=== PATIENT | female | born 1970 | race Hispanic/Latino ===

== ENCOUNTER 2022-10-01 12:46 | Inpatient (IN) | payer SELFPAY ==
[~2022-10-01 12:46] MED LIST: Iopamidol 300 61% 100 ML VIAL FS ONE
[2022-10-01] MEDS ORDERED: Ondansetron PF 4 MG/2 ML Vial ONE (13:16)
[2022-10-01 13:36] LABS: #Eosinphils 0.1 10x3/uL (0.0-0.5); #Monocytes 0.3 10x3/uL (0.0-1.1); #Neutrophils 7.3 10x3/uL (1.5-8.4); %Basophils 0.2 % (0.0-2.0); %Lymphocytes 17.1 % (18.0-47.0); %Monocytes 3.5 % (0.0-10.0); Hemoglobin 13.7 g/dL (12.0-15.5); Mean Corpuscular HGB CONC 35.2 g/dL (32.0-36.0); Mean Corpuscular Hemoglobin 29.1 pg (27.0-33.0); Mean Corpuscular Volume 82.8 fl (81.6-98.3); Mean Platelet Volume 10.1 fl (7.4-10.4); Platelet Count 329 10x3/uL (150-450); RBC Distribution Width 12.5 % (11.5-14.5); White Blood Cell (WBC) Count 9.4 10x3/uL (3.5-10.5)
[2022-10-01 13:40] LABS: Bilirubin Neg (Negative); Blood, Urine Negative (Negative); Clarity Clear (Clear); Glucose, Urine (Dipstick) Normal (Negative); Ketone, Urine 5 mg/dL (Negative); Leukocyte Negative (Negative); Nitrite Negative (Negative); Protein, Urine (Dipstick) Negative (Neg-Trace); Urobilinogen Normal mg/dL (Less than 2)
[2022-10-01 14:00] LABS: ALT (SGPT) 15 U/L (8-55); AST (SGOT) 20 U/L (5-34); Albumin 4.5 g/dL (3.5-5.0); Alkaline Phosphatase 111 U/L (40-110); Anion Gap 17 mmol/L (10-20); BUN (Urea Nitrogen) 10 mg/dL (9.8-20.1); Bilirubin, Total 0.8 mg/dL (0.2-1.2); Calc. Creatinine Clearance 0 mL/min (70-130); Carbon Dioxide 22 mmol/L (22-29); Chloride 103 mmol/L (98-107); Estimated GFR 105; Globulin 3.6 g/dL (2.4-3.5); Glucose 187 mg/dL (70-105); Lipase 16 U/L (8-78); Potassium 4.4 mmol/L (3.5-5.1); Protein, Total 8.1 g/dL (6.0-8.3); Sodium 138 mmol/L (136-145)
[2022-10-01 14:17] LABS: CKMB 1.7 ng/mL (0-6.6)
[2022-10-01] MEDS ORDERED: Aspirin 325 MG TAB ONE (14:32)
[2022-10-01] MEDS ORDERED: Morphine 2 MG/ML VIAL ONE (16:12)
[2022-10-01 16:33] LABS: Troponin I 0.081 ng/mL (< 0.028)
[2022-10-01] MEDS ORDERED: Ondansetron ODT 4 MG TAB PO PRN (17:26)
[2022-10-01] MEDS ORDERED: Acetaminophen 650 MG Suppository PR PRN (17:26)
[2022-10-01] MEDS ORDERED: Ondansetron PF 4 MG/2 ML Vial IVP PRN (17:26)
[2022-10-01] MEDS ORDERED: Insulin Regular 300 UNITS/3 ML VIAL SC PRN ×2 (17:29)
[2022-10-01] MEDS ORDERED: Dextrose 5% in Water 1,000 ML IV PRN (17:29)
[2022-10-01] MEDS ORDERED: Dextrose 50% Abboject 50 ML SYRINGE SLOW IVP PRN (17:29)
[2022-10-01] MEDS: Sodium Chloride 0.9% 1,000 ML IV SCH (17:51)
[2022-10-01] MEDS: Acetaminophen 325 MG TAB PO PRN (17:54)
[2022-10-01 18:50] VITALS: BMI 28.3
[2022-10-01 19:49] LABS: Troponin I 0.089 ng/mL (< 0.028)
[2022-10-01] MEDS: Metoprolol Tartrate 25 MG TAB PO SCH (19:52)
[2022-10-02 05:39] LABS: #Eosinphils 0.1 10x3/uL (0.0-0.5); #Monocytes 0.4 10x3/uL (0.0-1.1); #Neutrophils 4.5 10x3/uL (1.5-8.4); %Basophils 0.4 % (0.0-2.0); %Lymphocytes 28.2 % (18.0-47.0); %Neutrophils 64.1 % (40.0-75.0); Hemoglobin 12.1 g/dL (12.0-15.5); Mean Corpuscular HGB CONC 34.4 g/dL (32.0-36.0); Mean Corpuscular Hemoglobin 28.7 pg (27.0-33.0); Mean Corpuscular Volume 83.6 fl (81.6-98.3); Mean Platelet Volume 10.1 fl (7.4-10.4); Platelet Count 331 10x3/uL (150-450); RBC Distribution Width 12.9 % (11.5-14.5); Red Blood Cell (RBC) Count 4.21 10x6/uL (3.90-5.03)
[2022-10-02 05:44] LABS: Anion Gap 15 mmol/L (10-20); BUN (Urea Nitrogen) 9 mg/dL (9.8-20.1); Calc. Creatinine Clearance 106 mL/min (70-130); Calcium 9.2 mg/dL (7.8-10.44); Carbon Dioxide 21 mmol/L (22-29); Chloride 106 mmol/L (98-107); Estimated GFR 106; Glucose 166 mg/dL (70-105); Potassium 4.4 mmol/L (3.5-5.1); Sodium 138 mmol/L (136-145)
[2022-10-02] MEDS: Sodium Chloride 0.9% 1,000 ML IV SCH (06:05)
[2022-10-02] MEDS: Aspirin Chewable 81 MG TAB PO SCH (08:50)
[2022-10-02] MEDS: Enoxaparin Sodium 40 MG/0.4 ML SYRINGE SC SCH (08:50)
[2022-10-02] MEDS: Metoprolol Tartrate 25 MG TAB PO SCH ×2 (08:50→21:35)
[2022-10-02] MEDS: Acetaminophen 325 MG TAB PO PRN (08:53)
[2022-10-02] MEDS: Senokot S 8.6-50 MG TAB PO SCH ×2 (10:18→21:35)
[2022-10-03 05:59] LABS: Anion Gap 10 mmol/L (10-20); BUN (Urea Nitrogen) 7 mg/dL (9.8-20.1); Calc. Creatinine Clearance 115 mL/min (70-130); Calcium 9.5 mg/dL (7.8-10.44); Carbon Dioxide 25 mmol/L (22-29); Chloride 104 mmol/L (98-107); Estimated GFR 108; Glucose 197 mg/dL (70-105); Sodium 135 mmol/L (136-145)
[2022-10-03 06:18] LABS: #Eosinphils 0.1 10x3/uL (0.0-0.5); #Monocytes 0.3 10x3/uL (0.0-1.1); #Neutrophils 4.7 10x3/uL (1.5-8.4); %Basophils 0.3 % (0.0-2.0); %Eosinophils 1.5 % (0.0-6.0); %Lymphocytes 27.2 % (18.0-47.0); %Monocytes 4.8 % (0.0-10.0); %Neutrophils 66.1 % (40.0-75.0); Hemoglobin 12.4 g/dL (12.0-15.5); Mean Corpuscular HGB CONC 34.9 g/dL (32.0-36.0); Mean Corpuscular Volume 83.1 fl (81.6-98.3); Mean Platelet Volume 10.3 fl (7.4-10.4); Platelet Count 356 10x3/uL (150-450); RBC Distribution Width 12.6 % (11.5-14.5); Red Blood Cell (RBC) Count 4.27 10x6/uL (3.90-5.03); White Blood Cell (WBC) Count 7.1 10x3/uL (3.5-10.5)
[2022-10-03] MEDS: Metoprolol Tartrate 25 MG TAB PO SCH (10:03)
[2022-10-03] MEDS: Aspirin Chewable 81 MG TAB PO SCH (10:04)
[2022-10-03] MEDS: Enoxaparin Sodium 40 MG/0.4 ML SYRINGE SC SCH (10:04)
[2022-10-03] MEDS: Acetaminophen 325 MG TAB PO PRN (10:12)
[2022-10-03] MEDS: Senokot S 8.6-50 MG TAB PO SCH (10:15)
[2022-10-03] MEDS ORDERED: traMADol HCl 50 MG TAB PO PRN (11:34)
[2022-10-03 14:00] VITALS: BP 126/76; TEMP 97.8
== END 2022-10-03 02:45 | disposition home or self-care (01) | DRG 596 ==
LOC: CSHERS 12:46 → CSHTELE 16:05 → INTOOBSV 16:05 → OBSVTOIN 16:05
PROVIDERS: ADMIT Internal Medicine; ATTEND Physician Assistant
DX: B02.9 Zoster without complications (principal); K59.00 Constipation, unspecified; I10 Essential (primary) hypertension; E78.5 Hyperlipidemia, unspecified; E11.9 Type 2 diabetes mellitus without complications; R77.8 Other specified abnormalities of plasma proteins; Z90.49 Acquired absence of other specified parts of digestive tract
CPT/HCPCS: 36415; 36416; 74177; 80048; 80053; 81003; 82553; 83690; 84484; 85025; 85379; 93005; 93010; 94760; 96361; 96372; 96374; 96375; G0378; J1650; J1815; J2270; J2405; J7050; Q9967